=== PATIENT | female | born 1965 | race Caucasian/White ===

== ENCOUNTER 2024-03-26 08:05 | Day surgery (SDC) | payer OTHER ==
[~2024-03-26] VITALS: Ht 157.5 cm; Wt 68.0 kg
[2024-03-26] MEDS ORDERED: SODIUM CHLORIDE 0.9% 10 ML SYR ONE (08:09)
[2024-03-26] MEDS ORDERED: INDERAL10 MG PO (08:14)
[2024-03-26] MEDS ORDERED: SYNTHROID88 MCG PO (08:17)
[2024-03-26] MEDS ORDERED: VITAMIN D-32000 UNI1 PO (08:17)
[2024-03-26] MEDS ORDERED: UNKNOWN MEDICATION (08:18)
[2024-03-26] MEDS ORDERED: BUPIVACAINE HCL PF 0.5 % 50 MG/10 ML SDV ONE (08:31)
[2024-03-26] MEDS ORDERED: LIDOCAINE MPF 1% (10 MG/ML) 5 ML VIAL ONE (08:31)
[2024-03-26] MEDS ORDERED: TRIAMCINOLONE ACETONIDE 40 MG/ML ML ONE (08:31)
[2024-03-26 09:27] VITALS: BP 159/75
== END 2024-03-26 09:52 | disposition home or self-care (01) ==
LOC: ORM 08:05
PROVIDERS: ATTEND Student in an Organized Health Care Education/Training Program
DX: G89.4 Chronic pain syndrome (principal); M79.18 Myalgia, other site; R10.32 Left lower quadrant pain; R10.30 Lower abdominal pain, unspecified; Z11.52 Encounter for screening for COVID-19
CPT/HCPCS: J3301